=== PATIENT | female | born 1965 | race Caucasian/White ===

== ENCOUNTER 2020-08-22 07:55 | Outpatient (CLI) | payer BC, SELFPAY ==
[2020-08-22 08:20] LABS: Hemoglobin A1C 5.7 % (<5.7)
[2020-08-22 08:57] LABS: Alanine Aminotransferase 29 U/L (14-59); Albumin Level 3.8 g/dL (3.4-5.0); Alkaline Phosphatase 94 U/L (46-116); Anion Gap 7 mmol/L (8-16); Aspartate Amino Transferase 17 U/L (15-37); Bilirubin,Total 0.3 mg/dL (0.00-1.00); Blood Urea Nitrogen 12 mg/dL (7-18); Calcium 8.6 mg/dL (8.5-10.1); Carbon Dioxide 30 mmol/L (21-32); Chloride 104 mmol/L (98-108); Cholesterol 161 mg/dL (0-200); Estimated Glomerular Filt Rate > 60; Glucose 99 mg/dL (70-99); HDL Direct 62 mg/dL (40-60); LDL Cholesterol Calculated 86 mg/dL (<130); Osmolality Calculated 291 mOsm/kg (285-295); Potassium 4.3 mmol/L (3.5-5.1); Sodium 141 mmol/L (136-145); Total Protein 6.8 g/dL (6.4-8.2); Triglycerides 64 mg/dL (0-150)
[2020-08-22 10:37] LABS: Add Urine Microscopic? YES; Appearance Urine Clear (Clear); Bilirubin Urine Negative (Negative); Blood Urine Negative (Negative); Color Urine Yellow (Yellow); Glucose Urine UA Negative (Negative); Ketones Urine Negative (Negative); Leukocyte Esterase Ur 1+ LEU/UL (Negative); Nitrate Urine Negative (Negative); Protein Urine Negative (Negative); Urobilinogen Urine 0.2 mg/dL (0.2-1.0); pH Urine 6.5 (5.0-8.0)
[2020-08-22 10:41] LABS: Bacteria Urine Trace /hpf; RBC Urine None seen /hpf (0-2); Squamous Epithelial Cell Urine Few /hpf (Few)
[2020-08-25 10:24] LABS: Vitamin D 25 Hydroxy 29 ng/mL (30-100)
== END 2020-08-22 07:56 | disposition home or self-care (01) ==
LOC: CHSLAB 07:59
PROVIDERS: PCP Internal Medicine; Visit Provider Internal Medicine
DX: E55.9 Vitamin D deficiency, unspecified (principal); E78.5 Hyperlipidemia, unspecified; R73.01 Impaired fasting glucose; R82.90 Unspecified abnormal findings in urine
CPT/HCPCS: 36415; 80053; 80061; 81001; 82306; 83036; 87077; 87086; 87088

== ENCOUNTER 2020-11-14 10:20 | Outpatient (CLI) | payer BC, SELFPAY ==
[2020-11-14 11:05] LABS: SARS-CoV-2 Ag Negative (Negative)
== END 2020-11-14 10:21 | disposition home or self-care (01) ==
PROVIDERS: PCP Internal Medicine; Visit Provider Internal Medicine
DX: Z20.822 Contact with and (suspected) exposure to COVID-19 (principal)
CPT/HCPCS: 87426; C9803

== ENCOUNTER 2020-11-24 14:44 | Outpatient (CLI) | payer BC, SELFPAY ==
[2020-11-24 15:49] LABS: SARS-CoV-2 Ag Negative (Negative)
== END 2020-11-24 14:45 | disposition home or self-care (01) ==
LOC: CHSLAB 14:49
PROVIDERS: PCP Internal Medicine; Visit Provider Internal Medicine
DX: R09.81 Nasal congestion (principal)
CPT/HCPCS: 87426; C9803

== ENCOUNTER 2021-02-28 11:13 | Outpatient (CLI) | payer BC, SELFPAY ==
[2021-02-28 12:09] LABS: SARS-CoV-2 RNA PCR Negative (Negative)
== END 2021-02-28 11:14 | disposition home or self-care (01) ==
LOC: CHSLAB 11:16
PROVIDERS: PCP Internal Medicine; Visit Provider Internal Medicine
DX: Z20.822 Contact with and (suspected) exposure to COVID-19 (principal)
CPT/HCPCS: C9803; U0003; U0005

== ENCOUNTER 2021-07-11 10:13 | Outpatient (CLI) | payer BC, SELFPAY ==
--- NOTE | ~2021-07-11 | XR_ITS ---
EXAMINATION: XR hip BI wo pelvis EXAM DATE: 07/11/2021 10:33 INDICATION: B/L Hip Pain, R>L . No known recent injury. TECHNIQUE: Each hip imaged independently (separate right and also left hip) 'frog leg' and frontal p rojections for interpretation. There is no prior study for comparison. FINDINGS: No radiographic evidence of hip avascular necrosis. There is mild symmetric bilateral prim talia osteoarthritis. There are no acute fractures or dislocations identified. There is no subcutaneou s gas. The soft tissue is unremarkable. There are no radiopaque foreign bodies. IMPRESSION: Mild symmetric bilateral hip osteoarthritis. Reviewed, dictated and finalized at location B.
== END 2021-07-11 10:14 | disposition home or self-care (01) ==
LOC: CHSLAB 10:15 → CHSIMG 10:16
PROVIDERS: PCP Internal Medicine; Visit Provider Internal Medicine
DX: M25.552 Pain in left hip (principal); M25.551 Pain in right hip
CPT/HCPCS: 73521

== ENCOUNTER 2021-07-17 14:42 | Outpatient (CLI) | payer BC, SELFPAY ==
--- NOTE | ~2021-07-17 | XR_ITS ---
EXAMINATION: XR finger 1st RT min 2V EXAM DATE: 07/17/2021 14:59 INDICATION: Right thumb injury, pain. TECHNIQUE: Right 1st finger frontal, lateral and oblique projections obtained and reviewed. Correlat ion is made to right hand 09/12/2016. FINDINGS: There is advanced right triscaphe and 1st carpometacarpal joint primary osteoarthritis. Th ere are no acute fractures or dislocations identified. There is no subcutaneous gas. The soft tissu e is unremarkable. There are no radiopaque foreign bodies. IMPRESSION: 1. Right 1st finger exam without acute osseous findings. 2. 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 Reviewed, dictated and finalized at location A.
== END 2021-07-17 14:43 | disposition home or self-care (01) ==
LOC: CHSIMG 14:44
PROVIDERS: PCP Internal Medicine; Visit Provider Internal Medicine
DX: S69.91XA Unspecified injury of right wrist, hand and finger(s), initial encounter (principal)
CPT/HCPCS: 73140

== ENCOUNTER 2021-08-25 07:42 | Outpatient (RCR) | payer BC, SELFPAY ==
--- NOTE | 2021-08-25 08:55 | OTOPEVAL ---
Thank you for referring Laisha Jamison to [facility].? The patient is scheduled to be seen for therapy? ____x/week for ___ weeks. Please review, sign, date and return this plan of care JONI. I agree with and certify that the following plan of care is medically necessary. Referring Physician Date Admitting Provider: Attending Provider: Essie Coy Referring Provider: *OT Outpatient Evaluation Start: 08/25/21 07:03 Freq: Status: Active Protocol: Document 08/25/21 07:03 [facility] (Rec: 08/25/21 07:53 [facility] [id number]) Therapy Assessment Status Assessment Status Assessment Status Evaluation Evaluation Information Problem Diagnosis R thumb pain Onset 07/15/21 Cause R thumb dislocated Subjective Information Patient reports that she fell Query Text:As Reported By Patient/ and dislocated her R thumb on Family 07/15/21. Patient states that her R thumb continued to dislocate and pop back in several times. She wore a splint for a couple weeks until she saw the hand specialist who suggested hand therapy and use of thumb splint as needed. Patient reports that she has been back to work for a couple days and seems to be doing ok. 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 QuickDASH: 20.5% Diagnostic Tests X-Rays For This Problem Yes MRI For This Problem No Prior Level of Function Activity Level (Last 3 Months) Occupation daycare provider & cafeteria Hand Dominance Right Activity of Daily Living Ability Independent Indoor/Home Mobility Independent Community Mobility Independent Stairs Ability Independent Functional Cognition (Planning, Shopping Independent , Taking Medications) Cooking Yes Cleaning Yes Laundry Yes Shopping Yes Driving Yes Pain Assessment Timing of Pain Assessment Timing of Pain Assessment Assessment Self Report Self Report Pain Level 0 Pain Score Pain Score 0: Self Report Additional Pain Score Comments 1-2/10 has been the highest pain rating in last 24 hours
--- NOTE | 2021-11-13 13:40 | PCOTNOTE ---
Patient is discharged from skilled OT services secondary to patient request. MS See patient's last treatment note for skills at time of discharge. MS
== END 2021-09-01 18:00 | disposition home or self-care (01) ==
LOC: CHSOT 07:42
DX: M79.644 Pain in right finger(s) (principal)
CPT/HCPCS: 97110; 97140; 97165

== ENCOUNTER 2022-01-17 08:21 | Outpatient (CLI) | payer OTHER, SELFPAY ==
--- NOTE | ~2022-01-17 | MM_ITS ---
EXAMINATION: MM screening [facility] BI w saud HISTORY: Screening mammogram TECHNIQUE: Craniocaudal and mediolateral oblique 3-D tomosynthesis images were obtained and synthetic 2-D images were generated. CAD analysis was submitted and interpreted. COMPARISON: 08/21/2019, 07/15/2017, 06/18/2016 BREAST PARENCHYMAL COMPOSITION: The breasts are heterogeneously dense, which may obscure small masses . FINDINGS: There is no suspicious mass, calcification, or architectural distortion to suggest malignan cy in either breast. There has been no suspicious interval change. IMPRESSION: 1. No mammographic evidence of malignancy. 2. Recommend routine screening mammography in one year. BI-RADS Category 1: Negative Reviewed, dictated and finalized at location A.
== END 2022-01-17 08:22 | disposition home or self-care (01) ==
LOC: CHSIMG 08:22
PROVIDERS: PCP Internal Medicine; Visit Provider Internal Medicine
DX: Z12.31 Encounter for screening mammogram for malignant neoplasm of breast (principal)
CPT/HCPCS: 77063; 77067

== ENCOUNTER 2022-08-13 10:07 | Outpatient (CLI) | payer OTHER, SELFPAY ==
--- NOTE | ~2022-08-13 | XR_ITS ---
EXAMINATION: XR chest 2V 08/13/2022 10:28 INDICATION: Cough. Fever. Pneumonia. PROCEDURE: 2 view chest COMPARISON: No prior studies for comparison. FINDINGS: The lungs are clear. The lungs are hyperinflated which is consistent with, but not diagnost ic of chronic obstructive pulmonary disease. The cardiomediastinal silhouette is within normal limits . There are no pleural effusions. There is no pneumothorax suspected. IMPRESSION: 1: NO ACUTE CARDIOPULMONARY DISEASE. Reviewed, dictated and finalized at location B.
== END 2022-08-13 10:08 | disposition home or self-care (01) ==
PROVIDERS: PCP Internal Medicine; Visit Provider Internal Medicine
DX: R05.9 Cough, unspecified (principal); R50.9 Fever, unspecified
CPT/HCPCS: 71046

== ENCOUNTER 2022-08-21 09:03 | Outpatient (CLI) | payer OTHER, SELFPAY ==
--- NOTE | ~2022-08-21 | XR_ITS ---
XR chest 2V DATE: 08/21/2022 09:35 INDICATION: Cough not clearing after antibiotic regimen, right-sided chest pain TECHNIQUE: PA and lateral views COMPARISON: 08/13/2022 PA and lateral chest FINDINGS: Bilateral hyperinflation. No pulmonary infiltrate or consolidation, pleural effusion or pul monary vascular congestion or pneumothorax. Normal heart size. No hilar or mediastinal enlargement. Minimal thoracic dextroscoliosis and mild to moderate lumbar levoscoliosis IMPRESSION: Bilateral hyperinflation; no active cardiopulmonary disease Reviewed, dictated and finalized at location A.
[2022-08-21 09:20] LABS: Basophils Absolute Auto 0.08 K/mm3 (0.00-0.10); Basophils Percent Auto 1.3 % (0.0-1.0); Eosinophils Percent Auto 4.9 % (1.0-6.0); Hematocrit 40.1 % (35.0-49.0); Hemoglobin 13.4 g/dL (12.0-15.0); Immature Granulocyte Absolute 0.02 K/mm3 (0.00-0.00); Immature Granulocyte Percent A 0.3 % (0.0-0.0); Lymphocytes Percent Auto 29.7 % (18.0-42.0); Mean Corpuscular HGB Conc 33.4 g/dL (32.0-36.0); Mean Corpuscular Hemoglobin 31.6 pg (27.0-31.0); Mean Corpuscular Volume 94.6 fL (78.0-102.0); Mean Platelet Volume 9.2 fl (9.2-11.8); Monocytes Absolute Auto 0.78 K/mm3 (0.10-0.90); Monocytes Percent Auto 12.9 % (2.0-11.0); Neutrophils Absolute Auto 3.1 K/mm3 (1.7-7.2); Neutrophils Percent Auto 50.9 % (50.0-70.0); Platelet Count Result 286 K/mm3 (150-420); Red Blood Count 4.24 M/mm3 (4.20-5.40); White Blood Count 6.1 K/mm3 (4.8-10.8)
== END 2022-08-21 09:04 | disposition home or self-care (01) ==
LOC: CHSLAB 09:09
PROVIDERS: PCP Internal Medicine; Visit Provider Internal Medicine
DX: R05.9 Cough, unspecified (principal)
CPT/HCPCS: 36415; 71046; 85025

== ENCOUNTER 2022-12-31 01:21 | Day surgery (SDC) | payer OTHER, SELFPAY ==
[2022-12-10 13:21] VITALS: BMI 19.8
[2022-12-31 07:55] VITALS: BP 135/75; PULSE 80; RESP 18; TEMP 36.1; O2SAT 100; BMI 18.7
[2022-12-31] MEDS: LACTATED RINGERS 1,000 ML 150 ML IV CONT (08:06)
--- NOTE | 2022-12-31 08:28 | WPDANESEPPF ---
Anes - Initial Pre Proc Eval Procedure: Operation Date: 12/31/22 09:00 Proposed Procedures p Colonoscopy - Cali Michaels MD Date/Time: 12/31/22 08:28 Surgeon: Cali Michaels MD Pre Op Diagnosis: positive cologuard Patient Data Age: 57 Gender: F Height: 1.7 m Weight: 54.3 kg Last Vital Signs Temp 36.1 C L 12/31/22 07:55 Pulse 80 12/31/22 07:55 Resp 18 12/31/22 07:55 BP 135/75 12/31/22 07:55 Pulse Ox 100 12/31/22 07:55 O2 Del Method Room Air 12/31/22 07:55 Allergies Allergy/AdvReac Type Severity Reaction Status Date / Time No Known Allergies Allergy Verified 12/31/22 07:54 Home Medications Medication Instructions Recorded Confirmed Type Adult Probiotic 1 tab-cap PO DAILY 12/10/22 12/31/22 History Skin, Hair And Nails 1 tab-cap PO DAILY 12/10/22 12/31/22 History atorvastatin 10 mg tablet 10 mg PO DAILY 12/10/22 12/31/22 History geriatric multivitamin-min 1 tablet PO DAILY 12/10/22 12/31/22 History loratadine 10 mg tablet 10 mg PO DAILY 12/10/22 12/31/22 History Patient hx anesthesia problems: none Family hx anesthesia problems: none Results Review: All pre-operative results and documents have been reviewed as part of the pre-operative evaluation. [facility] Past Medical History Medical History (Updated 12/31/22 @ 08:28 by Ezequiel Pillai MD) Hyperlipidemia Family History Family History Other Family history of arthritis Social History Social History Smoking status: Never smoker Alcohol intake: never Substance use: never Substance use type: does not use Living arrangements: with family Spiritual care concerns: No Anes - Eval Final PreProcedure Day of Procedure 12/31/22 08:28 Patient weight: normal Heart: regular rate and rhythm Lungs: clear to auscultation Airway: Mallampati scale class III and special considerations retrognathia Neurological: alert and oriented Last oral intake: >/= 8 hours ASA classification: II Emergent: no Anesthetic plan: proceed Anesthesia type and monitoring: general GIVS and standard monitoring Results Review: All pre-operative results and documents have been reviewed as part of the pre-operative evaluation. Informed Consent: The patient's anesthetic plan and its attendant risks and benefits were discussed with the patient/family/POA. Questions were solicited and answers provided to the satisfaction of the patient/family/POA.
--- NOTE | 2022-12-31 08:42 | PM.HPGS ---
History of Present Illness History of Present Illness Consent: Risks, benefits, and alternatives have been discussed and questions answered. Patient agrees to proceed with procedure. Chief complaint: positive cologuard Narrative: Laisha Jamison is a 57 year old female here for colonoscopy, had + cologuard, last colonoscopy 15 years ago Review of Systems Constitutional: Constitutional: Denies headache(s) and Denies weakness Eyes: Eyes: Denies blurry vision ENT: Reports Normal hearing present, Denies headache(s) and Denies neck pain Cardiovascular: Cardiovascular: Denies chest pain and Denies dyspnea Respiratory: Respiratory: Denies dyspnea Gastrointestinal: Gastrointestinal: Reports no additional gastrointestinal complaints Genitourinary: Genitourinary: Denies dysuria Musculoskeletal: Musculoskeletal: Denies neck pain Integumentary/Breasts: Skin/Breast: Denies dry skin Neurologic: Reports Normal hearing present, Denies headache(s) and Denies weakness Psychiatric: Psychiatric: Denies anxiety Endocrine: Endocrine: Denies change in body appearance Hematologic/Lymphatic: Hematologic/Lymphatic: Denies easy bleeding Allergic/Immunologic: Allergic/Immunologic: Denies urticaria [facility] Past Medical History Medical History (Updated 12/31/22 @ 08:43 by Cali Michaels MD) Hyperlipidemia Positive colorectal cancer screening using Cologuard test Family History Family History Other Family history of arthritis Social History Social History Smoking status: Never smoker Alcohol intake: never Substance use: never Substance use type: does not use Living arrangements: with family Spiritual care concerns: No Meds Home Medications and Allergies Home Medications Medication Instructions Recorded Confirmed Type Adult Probiotic 1 tab-cap PO DAILY 12/10/22 12/31/22 History Skin, Hair And Nails 1 tab-cap PO DAILY 12/10/22 12/31/22 History atorvastatin 10 mg tablet 10 mg PO DAILY 12/10/22 12/31/22 History geriatric multivitamin-min 1 tablet PO DAILY 12/10/22 12/31/22 History loratadine 10 mg tablet 10 mg PO DAILY 12/10/22 12/31/22 History Allergies Allergy/AdvReac Type Severity Reaction Status Date / Time No Known Allergies Allergy Verified 12/31/22 07:54 Vital Signs Vital Signs - 24 hr 12/31/22 07:55 Temperature 97.0 F L Pulse Rate 80 Respiratory Rate 18 Blood Pressure 135/75 Pulse Oximetry 100 Oxygen Delivery Room Air Exam Const: General: comfortable and no acute distress HENMT: Face/Nose/Sinus: Normal nares present Eyes: General: appearance normal, both eyes and all related structures Neck: Neck: no JVD Resp: Auscultation: clear to auscultation bilaterally Cardio: Rate: regular rate Rhythm: regular rhythm GI: Inspection: non-distended GI Palp: Yes Soft to palpation Skin: General skin exam: normal color Neuro: General: gait normal Speech: normal speech Extrem: General: normal to inspection Psych: Mental Status: mental status grossly normal Assessment and Plan Assessment and plan (1) Positive colorectal cancer screening using Cologuard test: Code(s): R19.5 - Other fecal abnormalities Status: Acute Assessment and Plan: colonoscopy
[2022-12-31 09:05] VITALS: BP 111/70; PULSE 70; RESP 20; O2SAT 100
[2022-12-31 09:15] VITALS: BP 119/73; PULSE 69; RESP 21; O2SAT 100
[2022-12-31 09:25] VITALS: BP 135/76; PULSE 71; RESP 18; O2SAT 100
== END 2022-12-31 09:34 | disposition home or self-care (01) ==
PROVIDERS: PCP Internal Medicine; Visit Provider Internal Medicine Gastroenterology
PROC: 0DJD8ZZ Inspection of Lower Intestinal Tract, Via Natural or Artificial Opening Endoscopic (ICD-10-PCS; CPT 45378; principal; 2022-12-31 09:00)
DX: R19.5 Other fecal abnormalities (principal); K63.5 Polyp of colon; E78.5 Hyperlipidemia, unspecified; K57.30 Diverticulosis of large intestine without perforation or abscess without bleeding
CPT/HCPCS: 45385; 88305; J2704; J7120

== ENCOUNTER 2023-04-10 16:08 | Outpatient (CLI) | payer OTHER, SELFPAY ==
--- NOTE | ~2023-04-10 | XR_ITS ---
EXAM: XR ankle LT min 3V DATE: 04/10/2023 16:27 HISTORY: LAERAL PAIN/NO TRAUMA/HX OF CLUB FOOT . COMPARISON: 01/03/2017. FINDINGS: Decreased mineralization. Avulsion fracture fragment off the superior aspect of the anteri or talus. No lytic or blastic lesion. Moderate degenerative change in the tibiotalar joint and multip le midfoot joints. No erosion or periosteal change. Soft tissues within normal limits. IMPRESSION: Anterior talar avulsion fracture. Reviewed, dictated and finalized at location K.
== END 2023-04-10 16:09 | disposition home or self-care (01) ==
LOC: CHSLAB 16:11
PROVIDERS: PCP Internal Medicine; Visit Provider Internal Medicine
DX: S92.152A Displaced avulsion fracture (chip fracture) of left talus, initial encounter for closed fracture (principal); M25.572 Pain in left ankle and joints of left foot
CPT/HCPCS: 73610

== ENCOUNTER 2023-06-15 09:21 | Outpatient (CLI) | payer OTHER, SELFPAY ==
--- NOTE | ~2023-06-15 | XR_ITS ---
XR hip RT min 2V DATE: 06/15/2023 09:40 INDICATION: Chronic right hip pain TECHNIQUE: AP and lateral views COMPARISON: 07/11/2021 pelvis and bilateral hips FINDINGS: No fracture or dislocation, periosteal reaction or bone destruction or avascular necrosis. The pubic symphysis and sacroiliac joints are intact. IMPRESSION: No significant abnormality Reviewed, dictated and finalized at location A. IMPRESSION: No significant abnormality
== END 2023-06-15 09:22 | disposition home or self-care (01) ==
LOC: CHSIMG 09:24
PROVIDERS: PCP Internal Medicine; Visit Provider Internal Medicine
DX: M25.551 Pain in right hip (principal)
CPT/HCPCS: 73502

== ENCOUNTER 2023-07-23 12:01 | Outpatient (CLI) | payer OTHER, SELFPAY ==
--- NOTE | ~2023-07-23 | MM_ITS ---
EXAMINATION: MM screening [facility] BI w saud HISTORY: Screening mammogram TECHNIQUE: Craniocaudal and mediolateral oblique 3-D tomosynthesis images were obtained and synthetic 2-D images were generated. CAD analysis was submitted and interpreted. COMPARISON: 01/17/2022, 08/31/2019, 07/15/2017 BREAST PARENCHYMAL COMPOSITION: The breasts are heterogeneously dense, which may obscure small masses . FINDINGS: No suspicious mass, calcification, or architectural distortion are identified in either eugene ast to suggest malignancy. There has been no suspicious interval change. IMPRESSION: 1. No mammographic evidence of malignancy. 2. Recommend routine screening mammography in one year. BI-RADS Category 1: Negative Reviewed, dictated and finalized at location A.
--- NOTE | ~2023-07-23 | DEXA_ITS ---
Bone Density Report Name: ARTURO BANDA Age: 57 Sex: Female Ethnicity: White Date of : 1965 Indication: postmenopausal; screening for osteoporosis; height loss; Referring Provider: Erendira Almaguer Study: Bone densitometry was performed. Exam Date: July 23, 2023 Accession number: [id number] Bone Density: Region BMD T-score Z-score Classification AP Spine(L1-L4) 1.038 -0.1 1.2 Normal Femoral Neck (Left) 0.595 -2.3 -1.1 Osteopenia Total Hip (Left) 0.675 -2.2 -1.3 Osteopenia Femoral Neck (Right) 0.610 -2.2 -0.9 Osteopenia Total Hip (Right) 0.730 -1.7 -0.9 Osteopenia Femoral Neck Mean 0.602 -2.2 -1.0 Osteopenia Total Hip Mean 0.702 -2.0 -1.1 Osteopenia World Health Organization criteria for BMD impression classify patients as: Normal (T-score at or above -1.0), Osteopenia (T-score between -1.0 and -2.5), or Osteoporosis (T-score at or below -2.5). 10-year Fracture Risk(1): Major Osteoporotic Fracture 8.8% Hip Fracture 1.4% Reported Risk Factors: [place] (), Neck BMD=0.595, BMI=20.0 (1) FRAX(R) Version 3.08. Fracture probability calculated for an untreated patient. Fracture probability may be lower if the patient has received treatment. Clinical Information Provided by Patient: Patient maximum height was 66 Menopause Age: 50 No regular weight bearing exercise Drinks caffeinated beverages Onset of menses at age 11 Number of children 1 Impression: The patient has low bone mass, based on the Left Femoral Neck T-score. Discussion: BONE DENSITY IS LOW AT ONE OR MORE SKELETAL SITES. This patient's lowest T-score is low at one or more skeletal sites. It meets the World Health Organization's (WHO) criteria for ?low bone mass? (T-score between -1.0 and -2.5). The patient's 10-year risk of fracture as calculated by FRAX is less than the threshold where pharmacological therapy is recommended by the National Osteoporosis Foundation (NOF). However, all treatment decisions require clinical judgment and consideration of individual patient factors, including patient preferences, comorbidities, previous drug use, risk factors not captured in the FRAX model (e.g., frailty, falls, vitamin D deficiency, increased bone turnover, interval significant decline in bone density) and possible under or overestimation of fracture risk by FRAX. The patient should follow a healthful lifestyle (good nutrition with adequate calcium and vitamin D, and appropriate weight-bearing exercise). Follow-Up: Consider repeating this study in 2 to 3 years to reassess this patient's status, or sooner if there is some new clinical indication. Reported by: Dr. Mekhi Rothman on 07/25/2023 9:19:00 AM. Reviewed, dictated and finalized at location A.
== END 2023-07-23 12:02 | disposition home or self-care (01) ==
LOC: CHSIMG 12:02
PROVIDERS: PCP Internal Medicine; Visit Provider Internal Medicine
DX: Z12.31 Encounter for screening mammogram for malignant neoplasm of breast (principal); Z78.0 Asymptomatic menopausal state; M85.89 Other specified disorders of bone density and structure, multiple sites
CPT/HCPCS: 77063; 77067; 77080

== ENCOUNTER 2024-01-24 13:39 | Outpatient (CLI) | payer OTHER, SELFPAY ==
--- NOTE | ~2024-01-24 | XR_ITS ---
XR knee RT 3V DATE: 01/24/2024 14:08 INDICATION: Injury. Right knee pain suprapatellar area TECHNIQUE: Joaquin, AP and lateral views COMPARISON: None available from archive at this time FINDINGS: Very slight periarticular spurring at the medial and patellofemoral compartments consistent with minimal osteoarthritis. There is mild narrowing of the patellofemoral joint medially and suggestion of a small osteochondral defect of the articular surface of the femur at the medial patellofemoral compartment. Osteopenia. No fracture or dislocation or joint effusion. No periosteal reaction or bone destruction. No radiopaq ue intra-articular loose body or chondrocalcinosis. Knee joint spaces are otherwise relatively preser olivia. IMPRESSION: Mild osteoarthritis Reviewed, dictated and finalized at location B. IMPRESSION: Mild osteoarthritis
== END 2024-01-24 13:40 | disposition home or self-care (01) ==
LOC: CHSIMG 13:51
PROVIDERS: PCP Internal Medicine; Visit Provider Internal Medicine
DX: M25.561 Pain in right knee (principal); M17.11 Unilateral primary osteoarthritis, right knee
CPT/HCPCS: 73562

== ENCOUNTER 2024-04-16 07:06 | Outpatient (CLI) | payer BC, SELFPAY ==
--- NOTE | ~2024-04-16 | US_ITS ---
Right upper quadrant ULTRASOUND Ordering provider: Erendira Almaguer MD History: . EPIGASTRIC/RUQ PAIN . Comparison: None. FINDINGS: LIVER: Normal size and echotexture. No focal hepatic lesions or perihepatic fluid collections are jelly ntified. Normal flow in the portal vein. GALLBLADDER: Slightly contracted. Sludge is seen in the area of the fundus. The wall of the gallbladd er is 5.1 mm.. No evidence for stones, or pericholecystic fluid collections. A negative sonographic M urphy's sign was noted. BILIARY DUCTS: No evidence for intra or extrahepatic biliary dilation. Common bile duct measures 4.3 mm in diameter which is within normal limits. PANCREAS: Normal echotexture and size. FREE FLUID: None. IMPRESSION: 1. Slightly contracted gallbladder with thickened wall and gallbladder sludge. No evidence of cholecy stitis. Otherwise, Unremarkable ultrasound of the right upper quadrant Reviewed, dictated and finalized at location A. IMPRESSION: 1. Slightly contracted gallbladder with thickened wall and gallbladder sludge. No evidence of cholecystitis. Otherwise, Unremarkable ultrasound of the right u pper quadrant
== END 2024-04-16 07:07 | disposition home or self-care (01) ==
LOC: CHSIMG 07:08
PROVIDERS: PCP Internal Medicine; Visit Provider Internal Medicine
DX: R10.13 Epigastric pain (principal); K82.8 Other specified diseases of gallbladder
CPT/HCPCS: 76705

== ENCOUNTER 2024-04-27 07:00 | Outpatient (CLI) | payer BC, SELFPAY ==
--- NOTE | ~2024-04-27 | NM_ITS ---
EXAMINATION: NM hepatobiliary wo pharm DATE: 04/27/2024 09:28 INDICATION: Several weeks of right upper quadrant abdominal pain and nausea COMPARISON: Ultrasound dated 04/16/2024 TECHNIQUE: 5.8 mCi Tc-99m mebrofenin (Choletec) was administered intravenously. Scintigraphic images of the abdomen were obtained for 2 hours. FINDINGS: There is normal clearance of radiotracer from the blood pool. There is homogeneous tracer u ptake by the liver. Activity progresses to the common bile duct and proximal duodenum by 10 minutes. There is progressive accumulation of activity throughout the bowels during the remainder of the 2 ho urs of imaging with negligible residual hepatic activity at 2 hours. No gallbladder activity identifi ed during the course of the exam. IMPRESSION: 1. Normal hepatic uptake and excretion of activity into the bowel but with no discernible gallbladde r activity through 2 hours of imaging. This could be seen with acute cholecystitis in the appropriate clinical setting. Given however the provided clinical history of chronic pain with recent right uppe r quadrant ultrasound demonstrating no wall thickening of a contracted gallbladder with no evident sl udge or stones would favor chronic cholecystitis. Differential would also include post positive findi ng due to recent meal within 4 hours of imaging, prolonged fasting or hyperalimentation. Reviewed, dictated and finalized at location A. IMPRESSION: 1. Normal hepatic uptake and excretion of activity into the bowel but with no discernible gallbladder activity through 2 hours of imaging. This could be seen with acute cholecystitis in the appropriate clinical setting. Given however th e provided clinical history of chronic pain with recent right upper quadrant ul trasound demonstrating no wall thickening of a contracted gallbladder with no e vident sludge or stones would favor chronic cholecystitis. Differential would a lso include post positive finding due to recent meal within 4 hours of imaging, prolonged fasting or hyperalimentation.
== END 2024-04-27 07:01 | disposition home or self-care (01) ==
PROVIDERS: PCP Internal Medicine; Visit Provider Internal Medicine
DX: R10.11 Right upper quadrant pain (principal)
CPT/HCPCS: 78226; A9537

== ENCOUNTER 2024-06-06 08:49 | Outpatient (CLI) | payer BC, SELFPAY ==
--- NOTE | 2024-06-06 09:24 | ECG_ITS ---
Test Date: 2024-06-06 09:30:57 Measurements Intervals [place] Rate: 63 P: 75 OR: 158 QRS: 85 QRSD: 88 T: 66 QT: 424 QTc: 437 Interpretive Statements SINUS RHYTHM NORMAL ELECTROCARDIOGRAM No previous ECG available for comparison Electronically Signed On 06-06-2024 09:45:37 CDT by Sha Bloom M.D.
[2024-06-06 09:40] LABS: Alanine Aminotransferase 19 U/L (6-35); Albumin Level 4.3 g/dL (3.5-5.1); Alkaline Phosphatase 59 U/L (38-126); Amylase 70 U/L (30-110); Aspartate Amino Transferase 28 U/L (14-36); Bilirubin,Total 0.7 mg/dL (0.2-1.3); Lipase 44 U/L (23-300)
== END 2024-06-06 08:50 | disposition home or self-care (01) ==
LOC: ANHLAB 08:51
PROVIDERS: PCP Internal Medicine; Visit Provider Surgery
DX: Z01.818 Encounter for other preprocedural examination (principal); K81.0 Acute cholecystitis
CPT/HCPCS: 36415; 80076; 82150; 83690; 86850; 86900; 86901; 93005

== ENCOUNTER 2024-06-10 01:35 | Day surgery (SDC) | payer BC, SELFPAY ==
[2024-06-01 16:36] VITALS: BMI 19.0
--- NOTE | 2024-06-01 16:51 | SUR.PREOP ---
Report to the Outpatient Waiting Room, entrance under the green pavilion located off [facility], at time 8:00a.m on date 06/10/2024. Planned Procedure Time: 10:00a.m. Time changes happen often and if your time is changed the preop area will call you the afternoon before. - You and your visitor will be asked to self-screen and do not enter if you have any COVID symptoms. - A mask is optional within the hospital at this time. Patients may have clear liquids (water, carbonated beverages, clear teas, apple juice) until 3 hours prior to surgery with a maximum of 20 ounces. - No food from midnight until time of surgery - Infants may have breast milk until 4 hours before surgery, formula 6 hours prior to surgery. - Children will be allowed to drink immediately following surgery. If applicable, please bring a bottle or sippy cup to assist with drinking. Juice, water, soda, and popsicles are readily available. For infants on formula, please bring formula the day of surgery. Pacifiers are allowed. Take the following medications with a SIP of water the morning of surgery: N/A DO NOT STOP ANY OF YOUR OTHER PRESCRIPTION MEDICATIONS PRIOR TO SURGERY ?EXCEPT THE FOLLOWING Medications to discontinue per physician vitamins Date to take last dose 06/07/2024 Please no make-up, nail ukrainian, hairspray, perfume, deodorant, or body powder the day of surgery. No jewelry (including any body piercings) or valuables the day of surgery, leave them at home. Please take a shower or bath the night before, or the morning of, surgery with an antibacterial soap. Wear comfortable, loose fitting clothing. Children are encouraged to wear pajamas. - Jewelry must be removed prior to entering the operating room. Rings and piercings that are not removed may be cut off. - The hospital will not accept responsibility for valuables. - Please leave all valuables, including medications, at home the day of surgery. If you are going home after surgery, a licensed mail truck driver must drive you home. - NO public transportation without another adult if you receive anesthesia. - We recommend that an adult stay with you for 24 hours following discharge. - We also recommend that you do not drive, make important decision, drink alcoholic beverages, or take any drugs that were not prescribed by your health care provider for at least 24 hours after your discharge time. For Pediatric surgeries, we recommend two adults accompany the child home. Follow any additional instructions given to you from your surgeon. If you or anyone in your household have experienced Covid symptoms in the past week, please notify your surgeon or the nurse liaison at the phone number below for possible testing. Telephone instructions given to Laisha Jamison and asked if any additional questions and then verbalized understanding. Patient advised to call surgeon office or pre surgery nurse liaison [phone] if any additional questions.
[2024-06-10] VITALS (10 sets, daily range): BP systolic 107–132; BP diastolic 43–79; PULSE 67–88; RESP 10–16; TEMP 36.4; O2SAT 99–100
[2024-06-10] MEDS: LACTATED RINGERS 1,000 ML 30 ML IV CONT ×2 (08:30→12:10)
[2024-06-10] MEDS: KETOROLAC 15 MG/ML VIAL (*BKC) IV PUSH (08:45)
[2024-06-10] MEDS: INDOCYANINE GREEN 25 MG VIAL WITH DILUENT 3.75 MG IV PUSH (08:45)
[2024-06-10] MEDS: ACETAMINOPHEN 500 MG TABLET 1000 MG PO (08:45)
--- NOTE | 2024-06-10 09:03 | WPDANESEPPF ---
Anes - Initial Pre Proc Eval Procedure: Operation Date: 06/10/24 10:00 Proposed Procedures p Laparoscopic Cholecystectomy Davinci Assisted - Colin Mccoy DO Date/Time: 06/10/24 09:03 Surgeon: Colin Mccoy DO Pre Op Diagnosis: acute cholecystitis Patient Data Age: 58 Gender: F Height: 1.68 m Weight: 53.52 kg Allergies Allergy/AdvReac Type Severity Reaction Status Date / Time Penicillins Allergy Unknown Rash Verified 06/01/24 16:31 Sulfa (Sulfonamide Allergy Unknown Rash Verified 06/01/24 16:31 Antibiotics) Home Medications Medication Instructions Recorded Confirmed Type Adult Probiotic 1 tab-cap PO DAILY 12/10/22 06/01/24 History Skin, Hair And Nails 1 tab-cap PO DAILY 12/10/22 06/01/24 History geriatric multivitamin-min 1 tablet PO DAILY 12/10/22 06/01/24 History loratadine 10 mg tablet 10 mg PO DAILY 12/10/22 06/01/24 History psyllium husk 3.4 gram/5.4 gram 1 tbsp PO DAILY 06/01/24 06/01/24 History oral powder (Metamucil) Patient hx anesthesia problems: post op nausea/vomiting Family hx anesthesia problems: none Results Review: All pre-operative results and documents have been reviewed as part of the pre-operative evaluation. [facility] Past Medical History Medical History Hyperlipidemia Positive colorectal cancer screening using Cologuard test Family History Family History Other Family history of arthritis Social History Social History Smoking status: Never smoker Alcohol intake: never Substance use: never Substance use type: does not use Do You Feel Safe in your Home?: Yes Lack of Transportation: No Lack of Food: Never True Current Housing: I Have Housing Concerned About Future Housing: No Difficulty Paying Gas/Electric Bills: No Difficulty Paying for Meds: No Currently Unemployed: No Education: High School Diploma/GED Difficulty w/ Childcare or Family Care: No Living arrangements: with family Spiritual care concerns: No Anes - Eval Final PreProcedure Day of Procedure 06/10/24 09:03 Patient weight: normal Heart: regular rate and rhythm Lungs: clear to auscultation Airway: Mallampati scale class II and special considerations (L upper incisor w large chip. ) Neurological: alert and oriented Last oral intake: >/= 8 hours ASA classification: II Emergent: no Anesthetic plan: proceed Anesthesia type and monitoring: general ETT and standard monitoring Results Review: All pre-operative results and documents have been reviewed as part of the pre-operative evaluation. Hyperlipidemia, no meds. Pt can walk 3 fos, no, only mild dyspnea w 3 flights. Informed Consent: The patient's anesthetic plan and its attendant risks and benefits were discussed with the patient/family/POA. Questions were solicited and answers provided to the satisfaction of the patient/family/POA.
[2024-06-10] MEDS: SCOPOLAMINE 1 MG PATCH 1 PATCH TRANSDERM (09:39)
--- NOTE | 2024-06-10 10:13 | WPDHPUPDATE1 ---
History and Physical Update Update Date/Time: 06/10/24 10:13 History and Physical has been reviewed, including an updated exam of the patient. There are NO changes in the patient's condition. Risks, benefits, and alternatives have been discussed and questions answered. Patient agrees to proceed with procedure.
[2024-06-10] MEDS: ceFAZolin 2 GM/D5W 50 ML 2 GM/50 ML BAG IVPB (10:45)
[2024-06-10] MEDS: BUPIVACAINE/EPINEPHRINE 0.5% 50 ML VIAL 30 ML INFILTRATE (11:19)
--- NOTE | 2024-06-10 11:44 | W.PM.PROC2 ---
Procedure Note - Detailed Date of Procedure 06/10/24 Pre-op Diagnosis acute cholecystitis Post-op Diagnosis Same Procedure Performed 1. Laparoscopic cholecystectomy with cholangiography, da Loren assisted 2. Interpretation of cholangiography Surgeon Colin Mccoy, DO Anesthesia General and Local (0.5% bupivacaine) Indications This is a 58-year-old woman who presented with upper abdominal pain. She had a CT which showed a contracted gallbladder containing sludge or small stones. A HIDA scan was obtained which showed nonfilling of the gallbladder consistent with cholecystitis. Discussions were made with the patient about treatment options and decision was made to proceed with robotic assisted laparoscopic cholecystectomy with cholangiography. Findings Robotic assisted laparoscopic cholecystectomy with cholangiography was performed. After given the patient 1.5 mL of indocyanine green IV in the preop area, I then used near infrared fluorescent imaging to visualize the biliary anatomy. The common bile duct was identified and then the cystic duct was also identified. The cystic duct appeared to be occluded and there was minimal ICG perfusion within the gallbladder itself. The gallbladder appeared contracted, but no other significant abnormalities were noted. The gallbladder was removed and sent to the lab for pathology. Description of Procedure Procedure as well as risks, benefits, and alternatives were discussed with the patient. Written consent was obtained and placed in chart prior to procedure. 1.5 mL of indocyanine green was given intravenously in preop. Patient was brought back to surgical suite. She was placed supine on operating table. Time-out was done to confirm patient and procedure. She was then intubated by the anesthesia department. Her abdomen was then prepped and draped in sterile fashion using chlorhexidine prep. 0.5% bupivacaine was infiltrated locally at the site of each port placement. An 8 mm incision was made in the left upper quadrant and a 5 mm Optiview trocar was then advanced through the abdominal layers under direct visualization. Once inside the abdominal cavity, carbon dioxide insufflation was used to create a pneumoperitoneum. The camera was inserted and the abdomen was inspected. No mediated abnormalities were noted. The patient was placed in 12? reverse Trendelenburg position and rotated 6? to the left. Two 8 mm incisions were made in the right lateral abdomen and 2 8 mm trocars were inserted under direct visualization. An 8 mm incision was made in the supraumbilical region and an 8 mm trocar was inserted under direct visualization. The 5 mm Optiview trocar was then removed and another 8 mm trocar was inserted in its place. The robotic arms were then brought up to the patient's bedside and secured to each port. The camera and instruments were inserted. I then moved over to the robotic consult to take control of the camera and instruments. The gallbladder was grasped at the fundus and retracted cephalad. The infundibulum of the gallbladder was then grasped and retracted laterally. Hook electrocautery was then used to carefully dissect around the neck of the gallbladder. The cystic duct was identified and a window was created around it using hook electrocautery. The cystic artery was also identified and a window was created behind it using hook electrocautery. Critical view of safety was identified visualizing the cystic duct running directly into the neck of the gallbladder and the cystic artery running directly into the wall the gallbladder. The camera view was switched to firefly mode and the indocyanine green within the gallbladder and cystic duct was clearly visualized. No other structures were noted running into this region and there did not appear to be any obstruction of the cystic duct impeding flow of bile into the gallbladder. The camera mode was switched back to regular mode. Hemo lock clips were plac
[2024-06-10] MEDS: ONDANSETRON INJ 4 MG/2 ML VIAL IV PUSH (12:25)
[2024-06-10] MEDS: diphenhydrAMINE HCl INJ 50 MG/ML VIAL 12.5 MG IV PUSH ×2 (12:35→12:45)
[2024-06-10] MEDS: HALOPERIDOL LACTATE 5 MG/ML VIAL IV PUSH (13:00)
== END 2024-06-10 15:12 | disposition home or self-care (01) ==
PROVIDERS: PCP Internal Medicine; Visit Provider Surgery
PROC: 0FT44ZZ Resection of Gallbladder, Percutaneous Endoscopic Approach (ICD-10-PCS; CPT 47562; principal; 2024-06-10 10:00)
DX: K80.10 Calculus of gallbladder with chronic cholecystitis without obstruction (principal); E78.5 Hyperlipidemia, unspecified
CPT/HCPCS: 47563; S2900; 88304; A9270; J0690; J1100; J1200; J1630; J1885; J2250; J2405; J2704; J3010; J7120

== ENCOUNTER 2024-10-23 07:53 | Outpatient (CLI) | payer BC, SELFPAY ==
--- NOTE | ~2024-10-23 | MM_ITS ---
EXAMINATION: MM screening [facility] BI w saud HISTORY: Screening mammogram TECHNIQUE: Craniocaudal and mediolateral oblique 3-D tomosynthesis images were obtained and synthetic 2-D images were generated. CAD analysis was submitted and interpreted. COMPARISON: 07/23/2023, 01/17/2022, 08/31/2019 BREAST PARENCHYMAL COMPOSITION:Dense: The breasts are heterogeneously dense, which may obscure small masses. FINDINGS: No suspicious mass, calcification, or architectural distortion are identified in either eugene ast to suggest malignancy. There has been no suspicious interval change. IMPRESSION: No mammographic evidence of malignancy. Recommend routine screening mammography in one year. BI-RADS Category 1: Negative Reviewed, dictated and finalized at location . 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
== END 2024-10-23 07:54 | disposition home or self-care (01) ==
LOC: CHSIMG 07:56
PROVIDERS: PCP Internal Medicine; Visit Provider Internal Medicine
DX: Z12.31 Encounter for screening mammogram for malignant neoplasm of breast (principal)
CPT/HCPCS: 77063; 77067

== ENCOUNTER 2024-11-09 09:16 | Outpatient (CLI) | payer BC, SELFPAY ==
--- NOTE | ~2024-11-09 | CT_ITS ---
CT of the Abdomen and Pelvis: Indication: Abdominal pain Technique: 2.5 mm axial scans were obtained through the abdomen and pelvis following intravenous adm inistration of 100 cc of Omnipaque 350. Dose reduction technique was used on this scan by utilizing a utomated exposure control and iterative reconstruction technique. The dose-length product (DLP) was 1 77.70 mGy-cm. Findings: Scans through the lung bases are unremarkable. The liver, spleen, pancreas, adrenals and kidneys are within normal limits. Cholecystectomy clips are present. No evidence of aortic aneurysm. No lymphadenopathy. No bowel obstruction or bowel wall thickening. There is no evidence to suggest acute appendicitis. Images through the pelvis were performed. Urinary bladder unremarkable. No pelvic mass seen. No ascit es. Impression: No significant abnormalities seen. Reviewed, dictated and finalized at [facility]. [employer] DEVELOPMENT MANAGER Impression: No significant abnormalities seen.
[2024-11-09 09:43] LABS: Estimated Glomerular Filt Rate > 60
== END 2024-11-09 09:17 | disposition home or self-care (01) ==
PROVIDERS: PCP Internal Medicine; Visit Provider Internal Medicine
DX: R10.9 Unspecified abdominal pain (principal); R19.7 Diarrhea, unspecified
CPT/HCPCS: 74177; Q9967

== ENCOUNTER 2024-12-17 13:52 | Emergency (ER) | payer BC, SELFPAY ==
[2024-12-17] VITALS (15 sets, daily range): BP systolic 123–133; BP diastolic 65–87; PULSE 82–102; RESP 16–22; TEMP 36.8; O2SAT 97–100
[2024-12-17] MEDS: IPRATROPIUM 0.5 MG/ALBUTEROL SULFATE 2.5 MG AMPUL.NEB 3 ML INHALATION (14:13)
--- NOTE | 2024-12-17 14:25 | ED.CHESTPAIN ---
HPI - Chest Pain General Chief Complaint: Chest Pain Stated Complaint: chest pain Source: patient and family Mode of arrival: ambulatory Limitations: no limitations History of Present Illness HPI narrative: this is a 59-year-old female who presents with chest tightness with some some mild shortness of breath recently finished a course of antibiotics and was recently diagnosed and treated for influenza, patient with some shortness of breath with chest congestion no radiation of her pain no nausea vomiting no diaphoresis. MD complaint: chest discomfort Onset (ago): day(s) Prior episodes: No Onset: during rest Related Data Home Medications ?Medication ?Instructions ?Recorded ?Confirmed ?Last Taken ?Type Adult Probiotic 1 tab-cap PO DAILY 12/10/22 12/02/24 Unknown History Skin, Hair And Nails 1 tab-cap PO DAILY 12/10/22 12/02/24 Unknown History geriatric multivitamin-min 1 tablet PO DAILY 12/10/22 12/02/24 Unknown History loratadine 10 mg tablet 10 mg PO DAILY 12/10/22 12/02/24 Unknown History psyllium husk 3.4 gram/5.4 gram 1 tbsp PO DAILY 06/01/24 12/02/24 Unknown History oral powder (Metamucil) pantoprazole 40 mg tablet,delayed 40 mg PO BID 12/02/24 12/02/24 Unknown History release Allergies Allergy/AdvReac Type Severity Reaction Status Date / Time Penicillins Allergy Unknown Rash Verified 12/17/24 14:17 Sulfa (Sulfonamide Allergy Unknown Rash Verified 12/17/24 14:17 Antibiotics) Review of Systems Review of Systems: All systems reviewed & are unremarkable except as noted in HPI and below PMFSH Past Medical History Medical History Colon cancer screening GERD (gastroesophageal reflux disease) Upper abdominal pain Positive colorectal cancer screening using Cologuard test Hyperlipidemia Surgical History Surgical History History of laparoscopic cholecystectomy 06/10/2024 - laparoscopic cholecystectomy, da sahara assisted Family History Family History Other Family history of arthritis Social History Social History Smoking status: Never smoker Alcohol intake: never Substance use: never Substance use type: does not use Do You Feel Safe in your Home?: Yes Lack of Transportation: No Lack of Food: Never True Current Housing: I Have Housing Concerned About Future Housing: No Difficulty Paying Gas/Electric Bills: No Difficulty Paying for Meds: No Currently Unemployed: No Education: High School Diploma/GED Difficulty w/ Childcare or Family Care: No Living arrangements: with family Spiritual care concerns: No Exam Const: General: cooperative, healthy appearing, comfortable, no acute distress and well developed HENMT: Head: normal to inspection Face and sinus: normal facial exam Mouth: Yes Normal oral and palatal mucosa present Eyes: General: appearance normal, both eyes and all related structures Chest: Chest palpation & inspection: normal inspection of the chest and normal palpation of entire chest wall Resp: Effort & Inspection: normal respiratory effort and able to speak in complete sentences Auscultation: clear to auscultation bilaterally Cardio: Jugular venous distension: no JVD Palpation: normal PMI Rate: regular rate Rhythm: regular rhythm Heart sounds: S1 normal heart sound present GI: Inspection: normal to inspection Course Course Emergency Course: Chest x-ray performed which shows no acute cardiopulmonary abnormalities, EKG performed Patient received a DuoNeb, and COVID RSV influenza performed and reviewed with patient and family. Vital Signs Vital signs: Vital Signs Temperature 36.8 C 12/17/24 13:52 Pulse Rate 100 12/17/24 13:52 Respiratory Rate 20 12/17/24 13:52 Blood Pressure 129/87 12/17/24 13:52 Pulse Oximetry 98 12/17/24 13:52 Oxygen Delivery Room Air 12/17/24 13:52 Temperature 36.8 C 12/17/24 13:52 Pulse Rate 84 12/17/24 14:10 Respiratory Rate 17 12/17/24 14:10 Blood Pressure 129/87 12/17/24 13:52 Pulse Oximetry 100 12/17/24 14:10 Oxygen Delivery Room Air 12/17/24 13:52 MDM - Chest Pain Lab Data Labs: Lab Results 12/17/24 Range/Units 13:58 Influenza A (RT-PCR) Pending Influenza B (RT-PCR) Pending RSV (RT-PCR) Pending SARS-CoV-2 RNA (RT-PCR) Pending Critical Care Time Critical Care Time Critical Care Time: No Discharge Plan Discharge Patient Language: St Helen[place] Prescriptions: No Action pantoprazole 40 mg tablet,delayed release (DR/EC) 40 mg PO BID Adult Probiotic 1 tab-cap PO DAILY loratadine 10 mg Tablet 10 mg PO DAILY geriatric multivitamin-min Tablet 1 tablet PO DAILY Skin, Hair And Nails 1 tab-cap PO DAILY Metamucil 3.4 gram/5.4 gram Powder 1 tbsp PO DAILY Rx Instructions: mix into at least 8 oz of water or juice before administering Follow-up/Referrals: Erendira Almaguer MD [Primary Care Provider] -
[2024-12-17 14:45] LABS: SARS-CoV-2 RNA PCR Negative (Negative)
[2024-12-17 14:51] LABS: Influenza A QL RT-PCR Negative (Negative); Influenza B QL RT-PCR Negative (Negative); RSV RNA, RT-PCR Negative (Negative)
[2024-12-17] MEDS: AZITHROMYCIN 250 MG TABLET 500 MG PO (15:01)
== END 2024-12-17 15:03 | disposition home or self-care (01) ==
PROVIDERS: Emergency Provider Emergency Medicine; PCP Internal Medicine
DX: J06.9 Acute upper respiratory infection, unspecified (principal); Z20.822 Contact with and (suspected) exposure to COVID-19
CPT/HCPCS: 71045; 87637; 93005; 94640; 99284; A9270